=== PATIENT | female | born 1950 | race Two or more races ===

== ENCOUNTER 2017-07-29 16:00 | Outpatient (RCR) | payer OTHER | END 2017-08-13 | disposition home or self-care (01) | LOC: PTY 16:00 | DX: M25.561 Pain in right knee (principal); G89.29 Other chronic pain ==

== ENCOUNTER 2017-08-22 15:15 | Outpatient (RCR) | payer OTHER | END 2017-09-13 | disposition home or self-care (01) | LOC: PTY 15:15 | DX: M25.561 Pain in right knee (principal); G89.29 Other chronic pain ==

== ENCOUNTER 2017-10-16 15:13 | Outpatient (RCR) | payer OTHER | END 2017-11-13 | disposition home or self-care (01) | LOC: PTY 15:13 | DX: M25.561 Pain in right knee (principal); G89.29 Other chronic pain ==

== ENCOUNTER 2017-11-27 14:20 | Outpatient (RCR) | payer OTHER | END 2017-12-13 | disposition home or self-care (01) | LOC: PTY 14:20 | DX: M25.561 Pain in right knee (principal); G89.29 Other chronic pain ==